=== PATIENT | male | born 1970 | race Caucasian/White ===

== ENCOUNTER 2018-04-02 09:42 | Emergency (ER) | payer OTHER ==
[2018-04-02 09:49] VITALS: BP 109/44
--- NOTE | 2018-04-02 10:20 | PHYS DOC ---
Past History Past Medical History: Migraines Additional Past Medical Histor: PTSD, sleep disturbances Past Surgical History: Tonsillectomy Additional Past Surgical Histo: left hand, ing hernia Smoking: Non-smoker Alcohol Use: Rarely Drug Use: None Adult General Chief Complaint Chief Complaint: ANIMAL BITE HPI HPI 47-year-old male presents with Bite and scratches. The patient was going to take there Domestic cat for a walk when it panicked and bit and scratched him. They have a cat in a stroller went to open the garage door the garage door scared the cat and the cat jumped out of its harness. In attempt to keep From running away the patient grabbed over the cat. The cat was frightened so it bit him on the left hand twice and scratched up his right arm left arm and chest. He presents today because he is concerned about where the cat bit him. He states that he felt the bite "to the bone" and he is concerned about infection. He has no other complaints. Review of Systems Review of Systems Constitutional: Denies fever or chills [] Eyes: Denies change in visual acuity, redness, or eye pain [] HENT: Denies nasal congestion or sore throat [] Respiratory: Denies cough or shortness of breath [] Cardiovascular: No additional information not addressed in HPI [] GI: Denies abdominal pain, nausea, vomiting, bloody stools or diarrhea [] : Denies dysuria or hematuria [] Musculoskeletal: Denies back pain or joint pain [] Integument: Multiple cat scratches on the bilateral upper extremities. Bite baum on the right humerus and left hand[] Neurologic: Denies headache, focal weakness or sensory changes [] Endocrine: Denies polyuria or polydipsia [] All other systems were reviewed and found to be within normal limits, except as documented in this note. Allergies Allergies Allergies Coded Allergies Type Severity Reaction Last Updated Verified No Known Drug Allergies 10/08/13 No Physical Exam Physical Exam Constitutional: Well developed, well nourished, no acute distress, non-toxic appearance. [] HENT: Normocephalic, atraumatic, bilateral external ears normal, oropharynx moist, no oral exudates, nose normal. [] Eyes: PERRLA, EOMI, conjunctiva normal, no discharge. [] Neck: Normal range of motion, no tenderness, supple, no stridor. [] Cardiovascular:Heart rate regular rhythm, no murmur [] Lungs & Thorax: Bilateral breath sounds clear to auscultation [] Abdomen: Bowel sounds normal, soft, no tenderness, no masses, no pulsatile masses. [] Skin: Cat bites on left hand and right upper arm. Multiple scratches on bilateral upper extremities and chest.[] Back: No tenderness, no CVA tenderness. [] Extremities: No tenderness, no cyanosis, no clubbing, ROM intact, no edema. [] Neurologic: Alert and oriented X 3, normal motor function, normal sensory function, no focal deficits noted. [] Psychologic: Affect normal, judgement normal, mood normal. [] EKG EKG [] Radiology/Procedures Radiology/Procedures Indications: Cat bite today. Left hand pain and right humerus pain. The left hand study: No acute fracture or dislocation or osteolytic process is seen. 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 IMPRESSION: No acute fracture. 2 view right humerus study: No acute fracture or dislocation or osteolytic process is evident. IMPRESSION: No acute fracture. Electronically signed by: Ruddy Fortune MD (04/02/2018 10:36 AM) [facility][] Course & Med Decision Making Course & Med Decision Making Pertinent Labs and Imaging studies reviewed. (See chart for details) The patient did not have any foreign bodies in his hand or arm. We cleansed the bites with chlorhexidine saline solution. I will discharge the patient's on 7 days of Augmentin. [] Dragon Disclaimer Dragon Disclaimer This electronic medical record was generated, in whole or in part, using a voice recognition dictation system. Departure Departure: Referrals: BRANDON MORGAN DO, [facility] (PCP) Scripts Amoxicillin/Potassium Clav (AUGMENTIN 875-125 TABLET) 1 Each Tablet 1 TAB PO BID, #14 TAB Prov: NÉSTOR STREETER DO 04/02/18 NÉSTOR STREETER DO Apr 02, 2018 10:20
[2018-04-02] MEDS ORDERED: AMOX1TAB61 PO (10:26)
--- NOTE | 2018-04-02 10:39 | RAD ---
Indications: Cat bite today. Left hand pain and right humerus pain. The left hand study: No acute fracture or dislocation or osteolytic process is seen. 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 IMPRESSION: No acute fracture. 2 view right humerus study: No acute fracture or dislocation or osteolytic process is evident. IMPRESSION: No acute fracture. Electronically signed by: Ruddy Fortune MD (04/02/2018 10:36 AM) [facility]
--- NOTE | 2018-04-02 10:39 | RAD ---
Indications: Cat bite today. Left hand pain and right humerus pain. The left hand study: No acute fracture or dislocation or osteolytic process is seen. 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 IMPRESSION: No acute fracture. 2 view right humerus study: No acute fracture or dislocation or osteolytic process is evident. IMPRESSION: No acute fracture. Electronically signed by: Ruddy Fortune MD (04/02/2018 10:36 AM) [facility]
[2018-04-02] MEDS: [UNRECOGNIZED DRUG - OTHER] TP ONE (11:15)
== END 2018-04-02 11:20 | disposition home or self-care (01) ==
LOC: ER 09:42
DX: S61.452A Open bite of left hand, initial encounter (principal); S41.151A Open bite of right upper arm, initial encounter; S20.312A Abrasion of left front wall of thorax, initial encounter; G43.909 Migraine, unspecified, not intractable, without status migrainosus; F43.10 Post-traumatic stress disorder, unspecified; W55.01XA Bitten by cat, initial encounter; Y93.89 Activity, other specified; Y99.8 Other external cause status; Y92.89 Other specified places as the place of occurrence of the external cause
CPT/HCPCS: 73060; 73120; 99284; A4248

== ENCOUNTER 2018-04-02 20:21 | Emergency (ER) | payer OTHER ==
[~2018-04-02] VITALS: Ht 172.7 cm; Wt 78.9 kg
[2018-04-02 20:21] VITALS: BP 98/67
[~2018-04-02 20:21] MED LIST: AMOX1TAB61 PO
--- NOTE | 2018-04-02 21:25 | PHYS DOC ---
Past History Past Medical History: Other Additional Past Medical Histor: PTSD, sleep disturbances Past Surgical History: Other Additional Past Surgical Histo: left hand, ing hernia Smoking: Non-smoker Alcohol Use: Occasionally Drug Use: None Adult General Chief Complaint Chief Complaint: ANIMAL BITE HPI HPI Patient is a 47 year old male who presents with complaint of worsening redness and pain to the left hand after suffering a cat bite. The patient was seen earlier today and assessed cat bite. X-rays were negative for retained foreign body. The patient received treatment with Augmentin. The patient has taken 2 doses of Augmentin today. The patient came back to the emergency department due to worsening redness and pain. Patient has had no fevers. Patient has noted redness streaking in the left forearm. Denies lightheadedness or dizziness. Patient rates his pain as 8 out of 10. Due to worsening symptoms the patient came to the emergency department as he was told if he had any worsening pain or redness to come back and be rechecked. Review of Systems Review of Systems Constitutional: Denies fever or chills [] Eyes: Denies change in visual acuity, redness, or eye pain [] HENT: Denies nasal congestion or sore throat [] Respiratory: Denies cough or shortness of breath [] Cardiovascular: No denies chest pain or edema[] GI: Denies abdominal pain, nausea, vomiting, bloody stools or diarrhea [] : Denies dysuria or hematuria [] Musculoskeletal: Denies back pain or joint pain [] Integument: Redness, swelling, and pain to the right hand[] Neurologic: Denies headache, focal weakness or sensory changes [] All other systems were reviewed and found to be within normal limits, except as documented in this note. Allergies Allergies Allergies Coded Allergies Type Severity Reaction Last Updated Verified No Known Drug Allergies 10/08/13 No Physical Exam Physical Exam Constitutional: Alert, afebrile, appears in mild discomfort[] HENT: Normocephalic, atraumatic, bilateral external ears normal, oropharynx moist, no oral exudates, nose normal. [] Eyes: PERRLA, EOMI, conjunctiva normal, no discharge. [] Neck: Normal range of motion, no tenderness, supple, no stridor. [] Cardiovascular:Heart rate regular rhythm, no murmur [] Lungs & Thorax: Bilateral breath sounds clear to auscultation [] Abdomen: Bowel sounds normal, soft, no tenderness, no masses, no pulsatile masses. [] Skin: Warm, dry, erythema along medial aspect of left hand, lymphangitic streaking in left forearm. [] Back: No tenderness, no CVA tenderness. [] Extremities: Redness, swelling, and tenderness along medial aspect of left hand near puncture sites, full range of motion present in hand and wrist. [] Neurologic: Alert and oriented X 3, normal motor function, normal sensory function, no focal deficits noted. [] Current Patient Data Lab Results Not performed EKG EKG Not performed[] Radiology/Procedures Radiology/Procedures Not performed[] Course & Med Decision Making Course & Med Decision Making Pertinent Labs and Imaging studies reviewed. (See chart for details) Patient presents with symptoms approximately 12 hours after initial bite. The findings of redness, pain, and lymphangitic streaking are nonspecific at this time and can be secondary to inflammatory response. Patient has been started on appropriate antibiotic therapy. The patient is afebrile and otherwise stable at this time. Advised to continue on Augmentin therapy and use of ibuprofen for pain. The patient has an appointment tomorrow morning with his primary doctor which is appropriate follow-up in this case for reevaluation. Advised continued antibiotic therapy over 24-48 hour period and recommended return to emergency department for worsening symptoms rate patient was understanding and agreement with treatment plan. Dragon Disclaimer Dragon Disclaimer This electronic medical record was generated, in whole or in part, using a voice recognition dictation system. Departure Departure: Impression: Primary Impression: Injury due to bite Disposition: 01 HOME, SELF-CARE Condition: STABLE Referrals: BRANDON MORGAN DO, [facility] (PCP) Patient Instructions: Animal Bite Additional Instructions: Continue your antibiotics as prescribed. Follow up with the primary doctor tomorrow morning as scheduled. Return to the emergency department for any worsening symptoms. GAL EDMONDSON MD Apr 02, 2018 21:25
== END 2018-04-02 21:31 | disposition home or self-care (01) ==
LOC: ER 20:21
DX: S61.452D Open bite of left hand, subsequent encounter (principal); M79.642 Pain in left hand; W55.01XD Bitten by cat, subsequent encounter
CPT/HCPCS: 99283

== ENCOUNTER 2021-11-17 08:35 | Emergency (ER) | payer OTHER ==
[~2021-11-17] VITALS: Ht 172.7 cm; Wt 79.0 kg
--- NOTE | 2021-11-17 09:04 | PHYS DOC ---
Past History Past Medical History: Other Additional Past Medical Histor: PTSD, sleep disturbances; ADHD Past Surgical History: Other Additional Past Surgical Histo: left hand, ing hernia; left rotator cuff repair Smoking: Non-smoker Alcohol Use: Occasionally Drug Use: None Adult General Chief Complaint Chief Complaint: MECHANICAL FALL HPI HPI Patient is a 51-year-old male presenting via EMS for fall. Fall happened just prior to arrival. States he was walking down steps when he slipped on ice and fell backwards falling on left lateral rib cage. States he called his and subsequently called EMS. On arrival, patient was found to be hemodynamically stable complaining of ongoing left lateral rib, midline thoracic and lumbar pain. He was subsequently given 50 mcg intranasal fentanyl and transferred to our facility for evaluation. On arrival to ER, he complains of continued left- sided rib cage pain, midline thoracic and upper lumbar pain. He discloses he has prior herniated disks and spine. He is requesting pain meds. No changes in motor or sensory or neuro function Review of Systems Review of Systems Fourteen body systems of review of systems have been reviewed. See HPI for pertinent positives and negative responses, other andrade all other systems are negative, non-pertinent or non-contributory Allergies Allergies Allergies Coded Allergies Type Severity Reaction Last Updated Verified No Known Drug Allergies 11/17/21 No Physical Exam Physical Exam Constitutional: Well developed, well nourished, no acute distress, non-toxic appearance. HENT: Normocephalic, atraumatic, bilateral external ears normal, oropharynx moist, no oral exudates, nose normal. Eyes: PERRLA, EOMI, conjunctiva normal, no discharge. Neck: Normal range of motion, no tenderness, supple, no stridor. Cardiovascular: Heart rate regular, sinus rhythm, no murmurs rubs or gallops Lungs & Thorax: Bilateral breath sounds clear to auscultation Abdomen: Bowel sounds normal, soft, no tenderness, no masses, no pulsatile masses. Nonsurgical abdomen, no peritoneal signs Skin: Warm, dry, no erythema, no rash. Back: No tenderness, no CVA tenderness. Extremities: No tenderness, no cyanosis, no clubbing, ROM intact, no edema. Neurologic: Alert and oriented X 3, grossly normal motor & sensory function, no focal deficits noted. Psychologic: Affect normal, judgement normal, mood normal. Current Patient Data Vital Signs Vital Signs Date Time Temp Pulse Resp B/P (MAP) Pulse Ox O2 Delivery O2 Flow Rate FiO2 11/17/21 08:45 97.5 72 18 109/61 (77) 100 Room Air EKG EKG [] Radiology/Procedures Radiology/Procedures CT THORACIC SPINE WO, CT LUMBAR SPINE WO, CT THORAX WO History: Fall. Pain. Technique: CT of the chest was performed without contrast. Coronal and sagittal reconstructions were performed. CT thoracic and lumbar spine was obtained. Coronal and sagittal reconstructions were performed. Exposure: One or more of the following individualized dose reduction techniques were utilized for this examination: 1. Automated exposure control 2. Adjustment of the mA and/or kV according to patient size 3. Use of iterative reconstruction technique. Comparison: None Findings: Chest: No pathologic lymphadenopathy. Minimal coronary artery calcifications. Mild bilateral lower lobe posterior dependent atelectasis. No pneumothorax. No pleural effusion. No consolidation. Abdomen and pelvis: Right superior hepatic cyst measures 2.0 x 2.4 cm. Right renal cyst measures 1.6 cm. Bones: Acute left posterior seventh, eighth and ninth rib fractures. The eighth and ninth rib fractures are mildly displaced with adjacent subcutaneous gas. Thoracic spine CT: Acute left T9 and T10 transverse process nondisplaced fracture. Normal vertebral body height. Mild rightward curvature of the thoracic spine, potentially positional. Mild degenerative disc changes. No significant canal or neuroforaminal narrowing. Lumbar spine CT: Normal vertebral body height and alignment. No acute fracture. L1-L2: No canal or neuroforaminal narrowing. L2-L3: Small disc bulge. Mild facet arthropathy. No canal or neuroforaminal narrowing. L3-L4: Small broad-based disc bulge. Mild facet arthropathy. No canal or neuroforaminal narrowing. L4-5: Moderate central disc protrusion. Mild canal narrowing. Bilateral subacute recess narrowing, left greater than right. Mild facet arthropathy. No neuroforaminal narrowing. L5-S1: Small disc bulge. No canal narrowing. Mild facet arthropathy. No neuroforaminal narrowing. Impression: Chest CT: 1. Acute left seventh, eighth and ninth rib fractures with adjacent subcutaneous gas. Mildly displaced eighth and ninth rib fractures. Thoracolumbar spine CT: 1. Acute left T9 and T10 transverse process fractures. 2. Multilevel lumbar spondylosis most prominent L4-L5 with mild canal narrowing. Electronically signed by: Christiano Monroe DO (11/17/2021 10:15 AM) [id number] Heart Score C/O Chest Pain: No Risk Factors: Risk Factors: DM, Current or recent (<one month) smoker, HTN, HLP, family history of CAD, obesity. Risk Scores: Risk Factors: DM, Current or recent (<one month) smoker, HTN, HLP, family history of CAD, obesity. Course & Med Decision Making Course & Med Decision Making Patient immediately seen on EMS arrival, ABCs unremarkable HPI physical exam and comprehensive ER work-up obtained concerning for left- sided seventh eighth and ninth rib fractures and associated T9 and 10 transverse process fractures Discussed case with on-call neurosurgeon midlevel who reviewed case with neurosurgeon attending, joint decision among all to defer any need for hospital transfer for higher acuity of care/surgical intervention/further imaging by MRI Patient's pain well controlled while in ER setting. Extensive conversation had with patient and at bedside on expected plan of care and prognosis for given injuries with explicit instructions for close PCP and neurosurgeon follow-up Strict return precautions discussed at length with good understanding by patient and , all questions and concerns addressed prior to ER departure Dragon Disclaimer Dragon Disclaimer This electronic medical record was generated, in whole or in part, using a voice recognition dictation system. Departure Departure: Impression: Primary Impression: Multiple fractures of ribs of left side Additional Impression: Fracture of transverse process of thoracic vertebra Disposition: 01 HOME / SELF CARE / HOMELESS Condition: STABLE Referrals: BRANODN MORGAN DO, [facility] (PCP) Patient Instructions: Rib Fracture, Transverse Process Fracture Additional Instructions: As discussed prior to ER departure, you were found to have left seventh eighth and ninth rib fractures in addition to T9 and T10 transverse process fractures. Your case was reviewed with on-call neurosurgeon, Dr. Hudson, who wants to see you in the clinic for repeat evaluation in the outpatient setting. He disclosed after reviewing your case and pictures that no emergent surgical intervention was indicated nor need for hospital transfer for MRI imaging at present. As such, it is pertinent that you contact his office at [phone] immediately after ER departure in addition to contacting your primary care physician at [facility] to review ER visit today and need for close outpatient follow-up. You are given pain prescription today which she should use as written for severe pain purposes only. If any concerning signs or symptoms present prior to outpatient follow-up please adhere to previously discussed return precautions at length and/or return back to ER for repeat evaluation. If any concerning signs or symptoms present prior to outpatient follow-up please do not hesitate to come back for repeat evaluation. Is a pleasure to take care of you and I wish you the best going forward Scripts Oxycodone Hcl/Acetaminophen (PERCOCET 5-325 MG TABLET ) 1 Each Tablet 1 TAB PO PRN QID PRN for SEVERE PAIN 7-10 MDD 4 Tablet(s), #30 TAB 0 Refills Prov: NISHA LUCAS DO 11/17/21 Problem Qualifiers NISHA LUCAS DO Nov 17, 2021 09:04
[2021-11-17] MEDS ORDERED: HYDROcodone/APAP 5/325MG 1 TAB TABLET PO ONE (09:15)
--- NOTE | 2021-11-17 10:17 | RAD ---
CT THORACIC SPINE WO, CT LUMBAR SPINE WO, CT THORAX WO History: Fall. Pain. Technique: CT of the chest was performed without contrast. Coronal and sagittal reconstructions were performed. CT thoracic and lumbar spine was obtained. Coronal and sagittal reconstructions were performed. Exposure: One or more of the following individualized dose reduction techniques were utilized for thi s examination: 1. Automated exposure control 2. Adjustment of the mA and/or kV according to patient size 3. Use of iterative reconstruction technique. Comparison: None Findings: Chest: No pathologic lymphadenopathy. Minimal coronary artery calcifications. Mild bilateral lower lo be posterior dependent atelectasis. No pneumothorax. No pleural effusion. No consolidation. Abdomen and pelvis: Right superior hepatic cyst measures 2.0 x 2.4 cm. Right renal cyst measures 1.6 cm. Bones: Acute left posterior seventh, eighth and ninth rib fractures. The eighth and ninth rib fractur es are mildly displaced with adjacent subcutaneous gas. Thoracic spine CT: Acute left T9 and T10 transverse process nondisplaced fracture. Normal vertebral body height. Mild rightward curvature of the thoracic spine, potentially positional. Mild degenerative disc changes. No significant canal or neuroforaminal narrowing. Lumbar spine CT: Normal vertebral body height and alignment. No acute fracture. L1-L2: No canal or neuroforaminal narrowing. L2-L3: Small disc bulge. Mild facet arthropathy. No canal or neuroforaminal narrowing. L3-L4: Small broad-based disc bulge. Mild facet arthropathy. No canal or neuroforaminal narrowing. L4-5: Moderate central disc protrusion. Mild canal narrowing. Bilateral subacute recess narrowing, le ft greater than right. Mild facet arthropathy. No neuroforaminal narrowing. L5-S1: Small disc bulge. No canal narrowing. Mild facet arthropathy. No neuroforaminal narrowing. Impression: Chest CT: 1. Acute left seventh, eighth and ninth rib fractures with adjacent subcutaneous gas. Mildly displac ed eighth and ninth rib fractures. Thoracolumbar spine CT: 1. Acute left T9 and T10 transverse process fractures. 2. Multilevel lumbar spondylosis most prominent L4-L5 with mild canal narrowing. Electronically signed by: Christiano Monroe DO (11/17/2021 10:15 AM) [id number]
[2021-11-17] MEDS ORDERED: oxyCODONE/APAP 5/325 1 TAB TABLET PO ONE (10:45)
[2021-11-17] MEDS ORDERED: OXYC1TAB15 PO ×2 (11:53→12:07)
[2021-11-17 12:11] VITALS: BP 113/69
== END 2021-11-17 12:11 | disposition home or self-care (01) ==
LOC: ER 08:35
DX: S22.42XA Multiple fractures of ribs, left side, initial encounter for closed fracture (principal); S22.079A Unspecified fracture of T9-T10 vertebra, initial encounter for closed fracture; W18.09XA Striking against other object with subsequent fall, initial encounter; Y93.01 Activity, walking, marching and hiking; Y92.89 Other specified places as the place of occurrence of the external cause; Y99.8 Other external cause status
CPT/HCPCS: 71250; 72128; 72131; 99284-25